=== PATIENT | male | born 1965 | race African-American/Black ===

== ENCOUNTER 2023-01-12 23:32 | Emergency (ER) | payer MEDICAID ==
[~2023-01-12] VITALS: Ht 177.8 cm; Wt 88.0 kg
[2023-01-12 23:40] VITALS: BP_SYST 138
== END 2023-01-13 05:00 | disposition left against medical advice (07) ==
LOC: ER 23:32
DX: Z53.21 Procedure and treatment not carried out due to patient leaving prior to being seen by health care provider (principal)
CPT/HCPCS: 82962; 99281